=== PATIENT | male | born 1995 | race Caucasian/White ===

== ENCOUNTER 2019-10-21 17:55 | Emergency (ER) | payer BC, OTHER ==
[~2019-10-21] VITALS: Ht 180.3 cm; Wt 50.0 kg
[2019-10-21 18:21] VITALS: BP 146/82
[2019-10-21] MEDS ORDERED: LIDOcaine 1% W/epiNEPHrine 1:200,000 10ml vial IJ ONE (18:35)
== END 2019-10-21 20:08 | disposition home or self-care (01) ==
LOC: ER 17:56
DX: S61.214A Laceration without foreign body of right ring finger without damage to nail, initial encounter (principal); W45.8XXA Other foreign body or object entering through skin, initial encounter; Y93.89 Activity, other specified; Y92.89 Other specified places as the place of occurrence of the external cause; Y99.9 Unspecified external cause status
CPT/HCPCS: 99282